=== PATIENT | male | born 1950 | race Caucasian/White ===

== ENCOUNTER 2023-02-14 18:45 | Inpatient (IN) | payer OTHER ==
[~2023-02-14] VITALS: Ht 167.6 cm; Wt 83.9 kg
[~2023-02-14 18:45] MED LIST: B-100 COMPLEX1 TAB; HYZAAR 50/12.51 TAB; SYNTHROID125 MCG
[2023-02-14] MEDS ORDERED: MILLIPRED5 MG (19:14)
[2023-02-14] MEDS ORDERED: EZALLOR SPRINKLE5 MG PO (19:15)
[2023-02-14 21:50] LABS: HEMATOCRIT 47.7 % (39.0-48.0); HEMOGLOBIN 15.9 g/dL (13-16.00); MEAN CELL VOLUME 93.5 fL (80.0-100.00); MEAN CORPUSCULAR HEMOGLOBIN 31.1 pg (27.00-32.0); MEAN CORPUSCULAR HGB CONC 33.3 g/dl (32.0-36.0); PLATELET COUNT 159 K/uL (150-450); RED CELL DISTRIBUTION WIDTH 13.6 % (11.5-14.5)
[2023-02-14 22:30] LABS: CALCIUM 9.4 mg/dL (8.5-10.1); CREATININE SERUM 1.5 mg/dL (0.70-1.30); GFR 46.13
[2023-02-14 22:31] LABS: POTASSIUM 4.05 mEq/L (3.5-5.1)
[2023-02-15 02:37] LABS: LDH 210 U/L (87-241)
[2023-02-15 02:40] LABS: CKMB < 1.0 NG/ML (0.5-3.6)
[2023-02-15 15:07] LABS: LDH 178 U/L (87-241)
[2023-02-15 15:12] LABS: CKMB < 1.0 NG/ML (0.5-3.6)
[2023-02-16 02:13] LABS: LDH 166 U/L (87-241)
[2023-02-16 02:26] LABS: CKMB < 1.0 NG/ML (0.5-3.6)
[2023-02-16 06:28] LABS: HEMATOCRIT 44.2 % (39.0-48.0); HEMOGLOBIN 15.3 g/dL (13-16.00); MEAN CELL VOLUME 92.5 fL (80.0-100.00); MEAN CORPUSCULAR HGB CONC 34.5 g/dl (32.0-36.0); PLATELET COUNT 133 K/uL (150-450); RED BLOOD COUNT 4.77 M/uL (4.00-6.00); RED CELL DISTRIBUTION WIDTH 13.6 % (11.5-14.5)
[2023-02-16 06:39] LABS: INR 0.97; PARTIAL THROMBOPLASTIN TIME 27.6 SECONDS (22.0-34.0); PROTHROMBIN TIME 10.2 SECONDS (9.0-11.5)
[2023-02-16 07:02] LABS: ALBUMIN 2.8 gm/dL (3.4-5.0); ALKALINE PHOSPHATASE 77 U/L (50-136); ALT/SGPT 28 U/L (12-78); ANION GAP 6 (10.0-20.0); AST/SGOT 15 U/L (15-37); BILIRUBIN TOTAL 0.68 mg/dL (0.3-1.2); BILIRUBIN,CONJUGATED 0.18 mg/dL (0.0-0.2); BLOOD UREA NITROGEN 21 mg/dL (7-18); BUN CREA RATIO 16 (7.0-25.0); CALCIUM 8.5 mg/dL (8.5-10.1); CARBON DIOXIDE 29 mEq/L (21-32); CHLORIDE 114 mmol/L (98-107); CHOL HDL RATIO 4.4 (0-5.0); CHOLESTEROL 179 mg/dL (0-200); CREATININE SERUM 1.29 mg/dL (0.70-1.30); GLOBULINA 2.9 G/DL (2.4-3.5); GLUCOSE FASTING 82 mg/dL (65-100); HDL 41 mg/dl (40-60); LDL 119 mg/dl (0-130); OSMOLALITY SERUM 289 MOSM/KG (275-295); POTASSIUM 4.67 mEq/L (3.5-5.1); SODIUM 144 mmol/L (136-145); TOTAL PROTEIN 5.7 gm/dL (6.4-8.2); TRIGLYCERIDES 94 mg/dL (0-150); VLDL 18 (0-39)
[2023-02-16 07:06] LABS: C-REACTIVE PROTEIN < 0.29 MG/DL (0.00-0.29)
[2023-02-16 07:12] LABS: ERYTHROCYTE SEDIMENTATION RATE 23 mm/hr
[2023-02-16 14:16] LABS: PH,URINE 5.5 (5.0-8.0); URINE APPEARANCE Clear; URINE BILIRRUBIN Negative (NEGATIVE); URINE BLOOD Small; URINE COLOR Yellow; URINE GLUCOSE Negative (NEGATIVE); URINE LEUKOCYTE Negative; URINE NITRATE Negative; URINE PROTEIN Negative (NEGATIVE); URINE UROBILINOGEN 0.2 E.U./dl
[2023-02-16 14:20] LABS: URINE RBC 17.9 uL (0.0-20.8)
[2023-02-16 14:22] LABS: URINE BACTERIA 2.5 uL (0.0-1933); URINE EPITHELIAL CELLS 0.6 uL (0.0-38.8); URINE WBC 1.2 uL (0.0-23.2)
[2023-02-17] MEDS ORDERED: MESTINON60 M1 PO (07:04)
[2023-02-17] MEDS ORDERED: LIPITOR40 M1 PO (07:04)
[2023-02-17] MEDS ORDERED: PREDNISONE 5MG PO (07:05)
[2023-02-17] MEDS ORDERED: LEVOTHYROXINE150 MCG PO (07:05)
== END 2023-02-17 10:38 | disposition home or self-care (01) | DRG 123 ==
LOC: ER 18:46 → MEDI 02-15 01:27
PROVIDERS: General Practice; ADMIT Internal Medicine; ATTEND Internal Medicine
DX: H53.2 Diplopia (principal); D69.3 Immune thrombocytopenic purpura; N17.9 Acute kidney failure, unspecified; G70.00 Myasthenia gravis without (acute) exacerbation; Z20.822 Contact with and (suspected) exposure to COVID-19; I10 Essential (primary) hypertension; E03.9 Hypothyroidism, unspecified
CPT/HCPCS: 70551